=== PATIENT | female | born 1955 | race Two or more races ===

== ENCOUNTER 2019-11-08 14:05 | Observation (INO) | payer MEDICARE, OTHER, SELFPAY ==
[~2019-11-08] VITALS: Ht 162.6 cm; Wt 97.6 kg
--- NOTE | 2019-11-08 16:05 | NUR ---
DECK STEWARD: PT AMBULATORY TO ROOM FROM LOBBY
[2019-11-08] MEDS ORDERED: ALBUTEROL SULFATE 2.5 MG/3 ML NPPB ONE ×2 (16:25→18:00)
[2019-11-08] MEDS ORDERED: SODIUM CHLORIDE FLUSH 10ML SYR IVF ONE (16:30)
[2019-11-08] MEDS ORDERED: ALBUTEROL/IPRATROPIUM 2.5MG/0.5MG, 3 ML NPPB ONE (16:30)
--- NOTE | 2019-11-08 16:30 | NUR ---
PT HAS OF CO, SOB FOR 1 WEEK. PT STATES SHE WAS AT [facility] YESTERDAY AND JUST RECIEVED A CXR INDICATED PNEUMONIA, NO MEDICINES. DENIES N/V/D. AT BEDSIDE DISCUSSING POC. PT NOT IN ANY DISTRESS.
[2019-11-08] MEDS ORDERED: ALBUTEROL SULFATE 2.5MG/0.5ML ONE (16:32)
[2019-11-08 16:42] LABS: BASOPHILS % (AUTO) 0 % (0-1); EOSINOPHILS # (AUTO) 0.02 x10^3/uL (0-0.4); EOSINOPHILS % (AUTO) 0 % (1-7); LYMPHOCYTES # (AUTO) 1.63 x10^3/uL (1-3.4); LYMPHOCYTES % (AUTO) 11 % (22-44); MD NO; MEAN CORPUSCULAR HEMOGLOBIN 29.6 pg (27.0-34.8); MEAN CORPUSCULAR HGB CONC 32.9 g/dL (32.4-35.8); MEAN CORPUSCULAR VOLUME 89.8 fL (80-100); MEAN PLATELET VOLUME 8.2 fL (7.4-10.4); MONOCYTES # (AUTO) 0.33 x10^3/uL (0.2-0.8); MONOCYTES % (AUTO) 2 % (2-9); NEUTROPHILS # (AUTO) 12.82 x10^3/uL (1.8-6.8); NEUTROPHILS % (AUTO) 87 % (42-75); PLATELET COUNT 284 x10^3/uL (130-400); RED BLOOD COUNT 5.09 x10^6/uL (3.82-5.3); RED CELL DISTRIBUTION WIDTH 13.6 % (9.6-15.2)
[2019-11-08 16:47] LABS: RAPID INFLUENZA A Negative (Negative); RAPID INFLUENZA B Negative (Negative)
[2019-11-08 16:59] LABS: ALANINE AMINOTRANSFERASE 52 U/L (12-78); ALBUMIN 3.2 g/dL (3.4-5.0); ANION GAP 8 mmol/L (5-15); CALCIUM 9.2 mg/dL (8.5-10.1); CHLORIDE 109 mmol/L (98-107)
[2019-11-08 17:03] LABS: ALKALINE PHOSPHATASE 162 U/L (45-117); BILIRUBIN,TOTAL 0.4 mg/dL (0.2-1.0); TOTAL PROTEIN 8.4 g/dL (6.4-8.2); TROPONIN I < 0.015 ng/mL (0.000-0.045)
--- NOTE | 2019-11-08 17:32 | NUR ---
PT RESTING. MEDICATED PER ORDERS. VS STABLE. NO FURTHER NEEDS AT THIS TIME
--- NOTE | 2019-11-08 18:51 | NUR ---
REPORT Shaneka MAYO.
[2019-11-08] MEDS ORDERED: ACETAMINOPHEN 325 MG TABLET PO PRN (19:30)
[2019-11-08] MEDS ORDERED: hydrALAzine 20 MG/ML, 1ML IVPush PRN (19:30)
[2019-11-08] MEDS ORDERED: ONDANSETRON 2MG/ML, 2ML IVPush PRN (19:30)
[2019-11-08] MEDS: CEFTRIAXONE PMX 1GM/50ML 50 ML IV SCH (21:20)
[2019-11-08] MEDS: AZITHROMYCIN 500 MG in SODIUM CHLORIDE 0.9% 250 ML IV SCH (22:10)
[2019-11-08] MEDS ORDERED: ALBUTEROL/IPRATROPIUM 2.5MG/0.5MG, 3 ML NPPB PRN (23:30)
[2019-11-09 00:16] VITALS: BP 108/65
[2019-11-09 05:30] LABS: BASOPHILS % (AUTO) 1 % (0-1); EOSINOPHILS % (AUTO) 0 % (1-7); LYMPHOCYTES # (AUTO) 2.34 x10^3/uL (1-3.4); LYMPHOCYTES % (AUTO) 20 % (22-44); MD NO; MEAN CORPUSCULAR HEMOGLOBIN 29.6 pg (27.0-34.8); MEAN CORPUSCULAR HGB CONC 32.9 g/dL (32.4-35.8); MONOCYTES # (AUTO) 1.03 x10^3/uL (0.2-0.8); MONOCYTES % (AUTO) 9 % (2-9); NEUTROPHILS # (AUTO) 8.28 x10^3/uL (1.8-6.8); NEUTROPHILS % (AUTO) 70 % (42-75); PLATELET COUNT 339 x10^3/uL (130-400); RED BLOOD COUNT 4.41 x10^6/uL (3.82-5.3); RED CELL DISTRIBUTION WIDTH 13.6 % (9.6-15.2)
[2019-11-09 05:34] LABS: ANION GAP 7 mmol/L (5-15); CALCIUM 8.8 mg/dL (8.5-10.1); CHLORIDE 113 mmol/L (98-107); CREATININE 0.55 mg/dL (0.55-1.02)
[2019-11-09 06:05] VITALS: BP 100/59
[2019-11-09 14:20] VITALS: BP 107/70
[2019-11-09 19:10] VITALS: BP 111/69
[2019-11-09] MEDS: CEFTRIAXONE PMX 1GM/50ML 50 ML IV SCH (20:15)
[2019-11-09] MEDS: AZITHROMYCIN 500 MG in SODIUM CHLORIDE 0.9% 250 ML IV SCH (20:59)
[2019-11-10 01:55] VITALS: BP 132/75
[2019-11-10 07:01] VITALS: BP 110/61
[2019-11-10] MEDS ORDERED: CEFDINIR 300 MG CAPSULE PO SCH (11:30)
[2019-11-10] MEDS ORDERED: AZITHROMYCIN 250 MG TABLET PO SCH (11:30)
[2019-11-10 13:50] VITALS: BP 118/74
[2019-11-10] MEDS ORDERED: PRED20TA PO (13:57)
[2019-11-10] MEDS ORDERED: CEFD300C37 PO (13:57)
[2019-11-10] MEDS ORDERED: AZIT250T89 PO (13:57)
== END 2019-11-10 15:22 | disposition home or self-care (01) ==
LOC: ED 16:32 → INTOOBSV 17:58 → EDIP 17:58 → 3N 19:30 → DCLOUNGE 11-10 15:11
PROVIDERS: ADMIT Family Medicine; ATTEND Family Medicine
DX: J18.9 Pneumonia, unspecified organism (principal); J98.01 Acute bronchospasm; J18.0 Bronchopneumonia, unspecified organism; D72.829 Elevated white blood cell count, unspecified; R73.9 Hyperglycemia, unspecified; E66.9 Obesity, unspecified; F17.210 Nicotine dependence, cigarettes, uncomplicated; Z79.899 Other long term (current) drug therapy
CPT/HCPCS: 36415; 71046; 80048; 80053; 83605; 83880; 84145; 84484; 85025; 87040; 87400; 93005; 94640; 96365; 96366; 96367; 99285; G0378; J0456; J0696; J7050; J7512; J7613

== ENCOUNTER 2020-03-03 03:14 | Emergency (ER) | payer MEDICARE ==
[~2020-03-03] VITALS: Ht 165.1 cm; Wt 92.2 kg
[~2020-03-03 03:14] MED LIST: AZIT250T89 PO; CEFD300C37 PO; PRED20TA PO
--- NOTE | 2020-03-03 03:35 | NUR ---
Patient presents to ER c/o right side abd pain. Denies N/V/D. C/o constipation. She states saw her PCP on 02/03 and was dx with "something in my right ovary." Patient states she is supposed to have surgery. Denies vag bleeding or discharge. Denies urinary symptoms. Patient is in NAD. Respirations even and unlabored.
[2020-03-03 03:59] LABS: MICROSCOPIC INDICATED
[2020-03-03 04:17] LABS: BASOPHILS # (AUTO) 0.01 x10^3/uL (0-0.1); BASOPHILS % (AUTO) 0 % (0-1); EOSINOPHILS # (AUTO) 0.15 x10^3/uL (0-0.4); EOSINOPHILS % (AUTO) 2 % (1-7); LYMPHOCYTES # (AUTO) 3.36 x10^3/uL (1-3.4); LYMPHOCYTES % (AUTO) 36 % (22-44); MD NO; MEAN CORPUSCULAR HEMOGLOBIN 29.1 pg (27.0-34.8); MEAN CORPUSCULAR HGB CONC 33.2 g/dL (32.4-35.8); MEAN CORPUSCULAR VOLUME 87.6 fL (80-100); MEAN PLATELET VOLUME 8.1 fL (7.4-10.4); MONOCYTES # (AUTO) 0.56 x10^3/uL (0.2-0.8); MONOCYTES % (AUTO) 6 % (2-9); NEUTROPHILS # (AUTO) 5.35 x10^3/uL (1.8-6.8); NEUTROPHILS % (AUTO) 57 % (42-75); PLATELET COUNT 278 x10^3/uL (130-400); RED BLOOD COUNT 4.85 x10^6/uL (3.82-5.3); RED CELL DISTRIBUTION WIDTH 15.2 % (9.6-15.2)
[2020-03-03 04:25] LABS: ALANINE AMINOTRANSFERASE 26 U/L (12-78); ALBUMIN 3.5 g/dL (3.4-5.0); ANION GAP 7 mmol/L (5-15); CALCIUM 8.7 mg/dL (8.5-10.1); CHLORIDE 112 mmol/L (98-107); CREATININE 0.72 mg/dL (0.55-1.02)
[2020-03-03 04:27] LABS: ALKALINE PHOSPHATASE 115 U/L (45-117); BILIRUBIN,TOTAL 0.2 mg/dL (0.2-1.0); TOTAL PROTEIN 7.4 g/dL (6.4-8.2)
[2020-03-03 04:47] VITALS: BP 127/74
--- NOTE | 2020-03-03 04:47 | NUR ---
Patient to CT.
[2020-03-03] MEDS ORDERED: OMNIPAQUE 350 MG/ML, 100ML BOTTLE ONE (05:38)
--- NOTE | 2020-03-03 05:44 | NUR ---
Discharge instructions given. All questions and concerns addressed. Patient ambulatory with a steady gait. Belongings with patient.
[2020-03-03 05:50] LABS: CULTURE INDICATED? NO
== END 2020-03-03 05:45 | disposition home or self-care (01) ==
LOC: ED 05:36
DX: N83.8 Other noninflammatory disorders of ovary, fallopian tube and broad ligament (principal); R10.84 Generalized abdominal pain
CPT/HCPCS: 36415; 74177; 80053; 81001; 83690; 85025; 99285; Q9967

== ENCOUNTER 2020-03-10 06:28 | Day surgery (SDC) | payer MEDICARE ==
[2020-03-09 10:53] LABS: MD NO
[2020-03-09 11:03] LABS: INTERNATIONAL NORMALIZED RATIO 0.93 (0.93-1.1); PROTHROMBIN TIME 9.9 Seconds (9.6-11.5)
[2020-03-09 11:08] LABS: ALANINE AMINOTRANSFERASE 26 U/L (12-78); ALBUMIN 3.6 g/dL (3.4-5.0); ANION GAP 5 mmol/L (5-15); CALCIUM 8.9 mg/dL (8.5-10.1); CHLORIDE 110 mmol/L (98-107); CREATININE 0.68 mg/dL (0.55-1.02)
[2020-03-09 11:11] LABS: ALKALINE PHOSPHATASE 119 U/L (45-117); BILIRUBIN,TOTAL 0.5 mg/dL (0.2-1.0); TOTAL PROTEIN 7.6 g/dL (6.4-8.2)
[2020-03-09 11:49] LABS: BASOPHILS # (AUTO) 0.04 x10^3/uL (0-0.1); BASOPHILS % (AUTO) 1 % (0-1); EOSINOPHILS % (AUTO) 3 % (1-7); LYMPHOCYTES # (AUTO) 2.98 x10^3/uL (1-3.4); LYMPHOCYTES % (AUTO) 39 % (22-44); MEAN CORPUSCULAR HEMOGLOBIN 29.4 pg (27.0-34.8); MEAN CORPUSCULAR VOLUME 88.9 fL (80-100); MEAN PLATELET VOLUME 8.4 fL (7.4-10.4); MONOCYTES # (AUTO) 0.47 x10^3/uL (0.2-0.8); MONOCYTES % (AUTO) 6 % (2-9); NEUTROPHILS # (AUTO) 3.95 x10^3/uL (1.8-6.8); NEUTROPHILS % (AUTO) 52 % (42-75); PLATELET COUNT 289 x10^3/uL (130-400); RED BLOOD COUNT 5.11 x10^6/uL (3.82-5.3); RED CELL DISTRIBUTION WIDTH 14.9 % (9.6-15.2)
[~2020-03-10] VITALS: Ht 163.8 cm; Wt 92.2 kg
[2020-03-10 06:52] VITALS: BP 124/85
[2020-03-10] MEDS ORDERED: LACTATED RINGERS 1,000 ML IV SCH (06:55)
[2020-03-10] MEDS ORDERED: INDOCYANINE GREEN 25 MG VIAL ONE (06:58)
[2020-03-10] MEDS ORDERED: HEPARIN 1,000 UNITS/ML, 10ML ONE (06:58)
[2020-03-10] MEDS ORDERED: BUPIVACAINE/PF-EPI 0.25% 1:200K ONE (06:58)
[2020-03-10] MEDS ORDERED: CHLORHEXIDINE 15 ML UDC MM ONE (07:00)
[2020-03-10] MEDS ORDERED: CEFOTETAN PMX 2GM/50ML 50 ML IV ONE (07:00)
[2020-03-10] MEDS ORDERED: ACETAMINOPHEN 500 MG TABLET ONE ×2 (07:06→07:15)
[2020-03-10] MEDS ORDERED: GABAPENTIN 300 MG CAPSULE ONE ×2 (07:06→07:36)
[2020-03-10] MEDS ORDERED: MIDAZOLAM 1 MG/ML, 2ML ONE ×2 (07:10→08:43)
[2020-03-10] MEDS ORDERED: FENTANYL PF 250 MCG/5ML ONE (07:13)
[2020-03-10] MEDS ORDERED: KETOROLAC 30 MG/1 ML IV PRN ×2 (08:00→08:30)
[2020-03-10] MEDS ORDERED: OXYcodone 5 MG/5 ML ORAL.SOL UDC PO PRN ×2 (08:00→08:30)
[2020-03-10] MEDS ORDERED: HYDROmorphone 2 MG/ML, 1ML IVPush PRN ×2 (08:00→08:30)
[2020-03-10] MEDS ORDERED: ALBUTEROL SULFATE 2.5 MG/3 ML NPPB PRN ×2 (08:00→08:30)
[2020-03-10] MEDS ORDERED: hydrALAzine 20 MG/ML, 1ML IV PRN ×2 (08:00→08:30)
[2020-03-10] MEDS ORDERED: ACETAMINOPHEN 325 MG TABLET PO PRN ×2 (08:00→08:30)
[2020-03-10] MEDS ORDERED: PROMETHAZINE 25 MG/ML, 1ML IV PRN ×2 (08:00→08:30)
[2020-03-10] MEDS ORDERED: MEPERIDINE/PF 25MG/0.5ML IVPush PRN ×2 (08:00→08:30)
[2020-03-10] MEDS ORDERED: DIAZEPAM 5 MG/ML, 2ML IVPush PRN ×2 (08:00→08:30)
[2020-03-10] MEDS ORDERED: LABETALOL 5MG/ML, 20ML IV PRN ×2 (08:00→08:30)
[2020-03-10] MEDS ORDERED: FENTANYL PF 100 MCG/2ML IV PRN ×2 (08:00→08:30)
[2020-03-10] MEDS ORDERED: ROCURONIUM 10MG/ML,5ML ONE (09:27)
[2020-03-10] MEDS ORDERED: SUCCINYLCHOLINE 20 MG/ML, 10ML ONE (09:27)
[2020-03-10] MEDS ORDERED: GLYCOPYRROLATE 0.2MG/1ML, 5ML ONE (09:27)
[2020-03-10] MEDS ORDERED: SUGAMMADEX 200 MG/2 ML IVPush ONE (09:27)
[2020-03-10] MEDS ORDERED: PROPOFOL 10 MG/ML, 20ML ONE (09:27)
[2020-03-10] MEDS ORDERED: NEOSTIGMINE 1 MG/ML, 10ML ONE (09:27)
[2020-03-10] MEDS ORDERED: CEFAZOLIN 1,000 MG ONE (09:27)
[2020-03-10] MEDS ORDERED: ONDANSETRON 2MG/ML, 2ML ONE (09:27)
[2020-03-10] MEDS ORDERED: DEXAMETHASONE 4 MG/ML, 1ML ONE (09:27)
[2020-03-10] MEDS ORDERED: OXYcodone 5 MG/5 ML ORAL.SOL UDC ONE (11:10)
[2020-03-10] MEDS ORDERED: KETOROLAC 30 MG/1 ML IVPush SCH (17:00)
[2020-03-10] MEDS ORDERED: OXYcodone/APAP 5/325MG TABLET PO PRN (17:00)
== END 2020-03-10 18:05 | disposition home or self-care (01) ==
LOC: OUT 06:28
PROVIDERS: ATTEND Specialist
DX: D27.0 Benign neoplasm of right ovary (principal); N84.0 Polyp of corpus uteri; K38.8 Other specified diseases of appendix; F17.200 Nicotine dependence, unspecified, uncomplicated; Z79.01 Long term (current) use of anticoagulants; Z79.899 Other long term (current) drug therapy; Z88.7 Allergy status to serum and vaccine; Z98.51 Tubal ligation status
CPT/HCPCS: 36415; 58552; 71046; 74018; 80053; 85025; 85610; 85730; 86304; 86850; 86900; 86923; 88112; 88304; 88305; 88307; 88331; 93005; J0330; J0690; J1100; J1644; J2250; J2405; J2704; J2710; J3010; J3490; J7120